=== PATIENT | female | born 1990 ===

== ENCOUNTER 2017-11-30 19:35 | Emergency (ER) | payer SELFPAY ==
[2017-11-30] MEDS ORDERED: Bacitracin Zinc 1 Packet ONE (20:26)
[2017-11-30] MEDS ORDERED: Adacel (T-DAP) 0.5 ML VIAL ONE (20:45)
== END 2017-11-30 20:30 | disposition home or self-care (01) ==
LOC: ERS 19:35
DX: S61.211A Laceration without foreign body of left index finger without damage to nail, initial encounter (principal); W26.8XXA Contact with other sharp object(s), not elsewhere classified, initial encounter
CPT/HCPCS: 12001; 90471; 90715